=== PATIENT | male | born 1935 | race Caucasian/White ===

== ENCOUNTER → 2017-08-18 | Outpatient (CLI) | payer OTHER | END | disposition home or self-care (01) | LOC: CFH 10:52 | PROVIDERS: ATTEND Internal Medicine Cardiovascular Disease | DX: I35.1 Nonrheumatic aortic (valve) insufficiency (principal); I34.8 Other nonrheumatic mitral valve disorders; I51.7 Cardiomegaly; I35.8 Other nonrheumatic aortic valve disorders; I10 Essential (primary) hypertension; I48.2 Chronic atrial fibrillation | CPT/HCPCS: 93306 ==

== ENCOUNTER 2018-11-02 08:58 | Emergency (ER) | payer OTHER ==
[~2018-11-02] VITALS: Ht 188 cm; Wt 87.0 kg
[2018-11-02] MEDS ORDERED: HYDROmorphone 2 MG/ML, 1ML IVPush PRN (09:30)
[2018-11-02] MEDS ORDERED: SODIUM CHLORIDE FLUSH 10ML SYR IVF ONE (09:30)
[2018-11-02] MEDS ORDERED: HYDROmorphone 2 MG/ML, 1ML ONE (09:46)
[2018-11-02] MEDS ORDERED: ONDANSETRON 2MG/ML, 2ML ONE (09:57)
[2018-11-02 09:58] LABS: BASOPHILS # (AUTO) 0.04 x10^3/uL (0-0.1); BASOPHILS % (AUTO) 0 % (0-1); EOSINOPHILS % (AUTO) 1 % (1-7); LYMPHOCYTES # (AUTO) 1.78 x10^3/uL (1-3.4); LYMPHOCYTES % (AUTO) 18 % (22-44); MD NO; MEAN CORPUSCULAR HEMOGLOBIN 31.7 pg (27.5-34.5); MEAN CORPUSCULAR HGB CONC 33.7 g/dL (33.2-36.2); MEAN CORPUSCULAR VOLUME 93.9 fL (81-97); MEAN PLATELET VOLUME 9.3 fL (7.4-10.4); MONOCYTES % (AUTO) 6 % (2-9); NEUTROPHILS # (AUTO) 7.58 x10^3/uL (1.8-6.8); NEUTROPHILS % (AUTO) 75 % (42-75); PLATELET COUNT 215 x10^3/uL (130-400); RED BLOOD COUNT 4.59 x10^6/uL (4.38-5.82); RED CELL DISTRIBUTION WIDTH 14.9 % (9.4-14.8)
[2018-11-02] MEDS ORDERED: PLEASE ENTER HEIGHT AND WEIGHT MC SCH (10:00)
[2018-11-02] MEDS ORDERED: ONDANSETRON 2MG/ML, 2ML IVPush ONE (10:00)
[2018-11-02 10:12] LABS: ALANINE AMINOTRANSFERASE 20 U/L (12-78); ALBUMIN 4.1 g/dL (3.4-5.0); ANION GAP 14 mmol/L (5-15); CALCIUM 8.6 mg/dL (8.5-10.1); CHLORIDE 107 mmol/L (98-107); CREATININE 1.51 mg/dL (0.7-1.3)
[2018-11-02 10:14] LABS: ALKALINE PHOSPHATASE 79 U/L (45-117); BILIRUBIN,TOTAL 1.1 mg/dL (0.2-1.0); TOTAL PROTEIN 7.6 g/dL (6.4-8.2)
[2018-11-02] MEDS ORDERED: SODIUM CHLORIDE 0.9%, 500ML IVBOLUS ONE (10:30)
[2018-11-02] MEDS ORDERED: SODIUM CHLORIDE 0.9% 1,000ML IVBOLUS ONE (10:30)
[2018-11-02] MEDS ORDERED: OMNIPAQUE 180 MG/ML, 10ML VIAL ONE (11:01)
[2018-11-02] MEDS ORDERED: CEFTRIAXONE PMX 1GM/50ML 50 ML ONE (11:23)
[2018-11-02] MEDS ORDERED: CEFTRIAXONE PMX 1GM/50ML 50 ML IVPB ONE (11:30)
[2018-11-02 11:48] LABS: MICROSCOPIC INDICATED
[2018-11-02 12:17] LABS: CULTURE INDICATED? NO
[2018-11-02 13:30] VITALS: BP 99/67
== END 2018-11-02 13:58 | disposition home or self-care (01) ==
LOC: ED 09:45
DX: I48.2 Chronic atrial fibrillation (principal)
CPT/HCPCS: 36415; 71045; 74177; 80053; 81001; 83605; 83690; 85025; 87040; 93005; 96361; 96365; 96375; 99284; J0696; J1170; J2405; J7030; Q9965

== ENCOUNTER 2021-01-30 13:46 | Emergency (ER) | payer MEDICARE ==
[~2021-01-30] VITALS: Ht 188 cm; Wt 66.6 kg
[2021-01-30] MEDS ORDERED: APIX2.5T PO (14:32)
[2021-01-30] MEDS ORDERED: DIGO125T10 PO (14:32)
[2021-01-30 14:53] LABS: ALANINE AMINOTRANSFERASE 32 U/L (12-78); ALBUMIN 3.7 g/dL (3.4-5.0); ANION GAP 8 mmol/L (5-15); CALCIUM 9.2 mg/dL (8.5-10.1); CHLORIDE 102 mmol/L (98-107)
[2021-01-30 15:00] LABS: INTERNATIONAL NORMALIZED RATIO 1.18 (0.93-1.1); PROTHROMBIN TIME 12.6 Seconds (9.6-11.5)
[2021-01-30] MEDS ORDERED: SODIUM CHLORIDE 0.9% 1,000ML IVBOLUS ONE (15:00)
[2021-01-30] MEDS ORDERED: SODIUM CHLORIDE FLUSH 10ML SYR IVF ONE (15:00)
[2021-01-30 15:01] LABS: BASOPHILS % (AUTO) 1 % (0-1); EOSINOPHILS % (AUTO) 3 % (1-7); LYMPHOCYTES % (AUTO) 19 % (22-44); MEAN CORPUSCULAR HEMOGLOBIN 32.5 pg (27.5-34.5); MEAN CORPUSCULAR HGB CONC 33.6 g/dL (33.2-36.2); MEAN PLATELET VOLUME 10.9 fL (7.4-10.4); MONOCYTES % (AUTO) 11 % (2-9); NEUTROPHILS % (AUTO) 67 % (42-75); PLATELET COUNT 195 x10^3/uL (130-400); RED BLOOD COUNT 4.44 x10^6/uL (4.38-5.82); RED CELL DISTRIBUTION WIDTH 13.2 % (9.4-14.8)
[2021-01-30 15:03] LABS: MD NO
[2021-01-30 15:09] LABS: ALKALINE PHOSPHATASE 83 U/L (45-117); BILIRUBIN,TOTAL 1.6 mg/dL (0.2-1.0); CREATININE 1.71 mg/dL (0.7-1.3); TOTAL PROTEIN 7.3 g/dL (6.4-8.2); TROPONIN I < 0.015 ng/mL (0.000-0.045)
[2021-01-30] MEDS ORDERED: [UNRECOGNIZED DRUG - REMARK] PO (15:38)
[2021-01-30] MEDS ORDERED: OMNIPAQUE 350 MG/ML, 100ML BOTTLE ONE (16:01)
[2021-01-30 16:08] LABS: MICROSCOPIC NOT IND
--- NOTE | 2021-01-30 17:18 | NUR ---
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 PT AND FAMILY STATE THAT THEY ARE AWARE OF THE RESULTS OF THE CT AND WOULD LIKE TO GO HOME TO TALK TO THEIR PCP BEFORE THEY DECIDE ABOUT A PROCEDURE. PT IN BED WITH NO SIGNS OR SYMPTOMS OF ACUTE DSITRESS NOTED RESPIRATIONS EVEN AND UNLABORED
[2021-01-30 17:55] VITALS: BP 108/52
--- NOTE | 2021-01-30 17:56 | NUR ---
UROLOGIST AT BEDSIDE TO TALK TO PT AND FAMILY PT IN BED WITH NO SIGNS OR SYMPTOMS OF ACUTE DSITRESS NTOED RESPIRATIONS EVEN AND UNLABORED
== END 2021-01-30 18:19 | disposition home or self-care (01) ==
LOC: ED 15:41
DX: I48.20 Chronic atrial fibrillation, unspecified (principal); N13.30 Unspecified hydronephrosis; N28.9 Disorder of kidney and ureter, unspecified; R62.7 Adult failure to thrive; R06.02 Shortness of breath; R42 Dizziness and giddiness; R10.9 Unspecified abdominal pain; Z68.1 Body mass index [BMI] 19.9 or less, adult
CPT/HCPCS: 36415; 71045; 72072; 72110; 72190; 74177; 80053; 80162; 81003; 83605; 83735; 84443; 84484; 85025; 85610; 93005; 99285; J7030; Q9967